=== PATIENT | female | born 1990 | race Caucasian/White ===

== ENCOUNTER 2017-12-02 14:10 | Inpatient (IN) | payer MEDICAID ==
[~2017-12-02] VITALS: Ht 170.2 cm; Wt 83.0 kg
[2017-12-02 14:30] VITALS: BP 123/71
[2017-12-02] MEDS ORDERED: OXYTOCIN 30 UNITS/LACT RINGERS 500 ML IV ONE (15:37)
[2017-12-02] MEDS ORDERED: RINGERS SOLUTION,LACTATED 1,000 ML IV PRN (15:37)
[2017-12-02] MEDS ORDERED: PREN1TAB80 PO (15:37)
[2017-12-02] MEDS ORDERED: CITRIC ACID/SODIUM CITRATE 30 ML SOLUTION UDCUP PO PRN (15:45)
[2017-12-02] MEDS ORDERED: METOCLOPRAMIDE HCL 5 MG/ML 2 ML VIAL IVP PRN (15:45)
[2017-12-02] MEDS ORDERED: AMPICILLIN SODIUM 2 GM/NS 100 ML IV ONE (15:45)
[2017-12-02] MEDS ORDERED: LIDOCAINE/PF 1% 30 ML VIAL INJ PRN (15:45)
[2017-12-02] MEDS ORDERED: DINOPROSTONE 10 MG VAGINAL SUPPOSITORY VG ONE (15:45)
[2017-12-02] MEDS: RINGERS SOLUTION,LACTATED 1,000 ML IV SCH (16:13)
[2017-12-02 16:23] LABS: BASOPHILS % (AUTO) 0.3 % (0.0-2.0); EOSINOPHILS % (AUTO) 1.3 % (1.0-6.0); HEMATOCRIT 29.5 % (36-46); HEMOGLOBIN 10.1 g/dL (12.0-16.0); LYMPHOCYTES # (AUTO) 1.5 K/uL (1.0-4.8); LYMPHOCYTES % (AUTO) 22.8 % (22.0-44.0); MEAN CORPUSCULAR HEMOGLOBIN 31.5 pg (26.0-34.0); MEAN CORPUSCULAR HGB CONC 34.3 G/dL (31.0-37.0); MEAN CORPUSCULAR VOLUME 92 fL (80-100); MONOCYTES # (AUTO) 0.6 K/uL (0.1-1.0); MONOCYTES % (AUTO) 8.6 % (2.0-9.0); NEUTROPHILS # (AUTO) 4.5 K/uL (1.8-7.7); PLATELET COUNT (AUTO)-OB 255 K/uL (150-450); RED BLOOD CELL COUNT(AUTO) 3.21 MIL/uL (4.00-5.20); RED CELL DISTRIBUTION WIDTH 14.3 % (11.5-14.5)
[2017-12-02] MEDS: FentaNYL CITRATE-PF 100 MCG/2 ML VIAL IVP PRN (18:57)
[2017-12-02] MEDS ORDERED: OXYGEN THERAPY IH SCH (20:00)
[2017-12-02] MEDS: AMPICILLIN SODIUM 1 GM/NS 50 ML IV SCH (20:25)
[2017-12-03] MEDS: AMPICILLIN SODIUM 1 GM/NS 50 ML IV SCH (00:11)
[2017-12-03] MEDS: FentaNYL CITRATE-PF 100 MCG/2 ML VIAL IVP PRN ×2 (00:25→00:27)
[2017-12-03] MEDS: RINGERS SOLUTION,LACTATED 1,000 ML IV SCH (01:12)
[2017-12-03] MEDS ORDERED: ROPIVACAINE HCL/PF 0.2% 100 ML ED ONE (02:39)
[2017-12-03] MEDS ORDERED: ROPIVACAINE HCL/PF 0.2% 100 ML ED PRN (03:13)
[2017-12-03] MEDS ORDERED: DiphenhydrAMINE HCL 50 MG/ML VIAL IVP PRN (03:15)
[2017-12-03] MEDS ORDERED: ONDANSETRON HCL 4 MG/2 ML VIAL IVP PRN (03:15)
[2017-12-03] MEDS ORDERED: FentaNYL CITRATE-PF 100 MCG/2 ML VIAL ONE (03:32)
[2017-12-03] MEDS ORDERED: OXYTOCIN 30 UNITS/LACT RINGERS 500 ML IV ONE (03:39)
[2017-12-03] MEDS ORDERED: -PHARMACY NOTE- MISC ONE (03:45)
[2017-12-03] MEDS ORDERED: LANOLIN 7 GM OINTMENT TP PRN (04:30)
[2017-12-03] MEDS ORDERED: ACETAMINOPHEN/CODEINE 300-30 MG TABLET PO PRN ×2 (04:30)
[2017-12-03] MEDS ORDERED: GLYCERIN/WITCH HAZEL LEAF 40 PADS JAR TP PRN (04:30)
[2017-12-03] MEDS ORDERED: BENZOCAINE 20%/MENTHOL 56 GM SPRAY CANISTER TP PRN (04:30)
[2017-12-03] MEDS: IBUPROFEN 800 MG TABLET PO SCH ×4 (06:00→22:19)
[2017-12-03] MEDS: MAGNESIUM HYDROXIDE SUSPENSION 30 ML UDCUP PO SCH ×2 (09:00→21:00)
[2017-12-04] MEDS: IBUPROFEN 800 MG TABLET PO SCH (06:00)
[2017-12-04] MEDS ORDERED: MEASLES/MUMPS/RUBELLA VACCINE, LIVE 0.5 ML/VIAL SQ ONE (08:00)
[2017-12-04] MEDS: MAGNESIUM HYDROXIDE SUSPENSION 30 ML UDCUP PO SCH (09:00)
== END 2017-12-04 10:45 | disposition home or self-care (01) | DRG 560 ==
LOC: OBSVTOIN 14:10 → 4S 14:10
PROVIDERS: ADMIT Obstetrics & Gynecology; ATTEND Obstetrics & Gynecology
PROC: 10E0XZZ Delivery of Products of Conception, External Approach (ICD-10-PCS; principal; 2017-12-03)
PROC: 3E0R3BZ Introduction of Anesthetic Agent into Spinal Canal, Percutaneous Approach (ICD-10-PCS; 2017-12-03)
PROC: 00HU33Z Insertion of Infusion Device into Spinal Canal, Percutaneous Approach (ICD-10-PCS; 2017-12-03)
DX: O41.03X0 Oligohydramnios, third trimester, not applicable or unspecified (principal); O99.820 Streptococcus B carrier state complicating pregnancy; Z28.21 Immunization not carried out because of patient refusal; Z37.0 Single live birth; Z3A.39 39 weeks gestation of pregnancy
CPT/HCPCS: 86850; 86870; 86880; 86900; 86901; 86905; 86906; 86971; 86999; J0290; J2590; J2795; J3010; J7120

== ENCOUNTER 2019-05-19 10:05 | Observation (INO) | payer MEDICAID ==
[~2019-05-19] VITALS: Ht 170.2 cm; Wt 75.7 kg
[~2019-05-19 10:05] MED LIST: PREN1TAB80 PO
== END 2019-05-19 11:25 | disposition home or self-care (01) ==
LOC: 4S 10:05
PROVIDERS: ADMIT Obstetrics & Gynecology; ATTEND Obstetrics & Gynecology
DX: Z34.93 Encounter for supervision of normal pregnancy, unspecified, third trimester (principal); Z3A.34 34 weeks gestation of pregnancy
CPT/HCPCS: 59025; 81001; G0378

== ENCOUNTER 2019-05-22 18:11 | Observation (INO) | payer MEDICAID ==
[2019-05-22 18:19] VITALS: BP 119/65
== END 2019-05-22 19:00 | disposition home or self-care (01) ==
LOC: 4S 18:11
PROVIDERS: ADMIT Obstetrics & Gynecology Obstetrics; ATTEND Obstetrics & Gynecology Obstetrics
DX: O36.1930 Maternal care for other isoimmunization, third trimester, not applicable or unspecified (principal); Z3A.34 34 weeks gestation of pregnancy
CPT/HCPCS: 59025; 81001; G0378

== ENCOUNTER 2019-05-23 18:16 | Observation (INO) | payer MEDICAID ==
[~2019-05-23] VITALS: Ht 170.2 cm; Wt 77.6 kg
[2019-05-23 19:27] VITALS: BP 112/63
[2019-05-23 21:05] LABS: GLUCOMETER DEV NAME(LOC) 4S.; GLUCOSE,POINT OF CARE 91 MG/DL (70-110)
== END 2019-05-23 19:55 | disposition home or self-care (01) ==
LOC: 4S 18:16
PROVIDERS: ADMIT Obstetrics & Gynecology Obstetrics; ATTEND Obstetrics & Gynecology Obstetrics
DX: O41.1030 Infection of amniotic sac and membranes, unspecified, third trimester, not applicable or unspecified (principal); Z3A.34 34 weeks gestation of pregnancy
CPT/HCPCS: 59025; 76811; 82962; G0378

== ENCOUNTER 2019-05-30 18:14 | Observation (INO) | payer MEDICAID ==
[~2019-05-30] VITALS: Ht 170.2 cm; Wt 76.7 kg
[2019-05-30 18:39] VITALS: BP 119/87
== END 2019-05-30 19:55 | disposition home or self-care (01) ==
LOC: 4S 18:14
PROVIDERS: ADMIT Obstetrics & Gynecology; ATTEND Obstetrics & Gynecology
DX: Z34.93 Encounter for supervision of normal pregnancy, unspecified, third trimester (principal); Z3A.35 35 weeks gestation of pregnancy
CPT/HCPCS: 59025; 76805; 81001; G0378

== ENCOUNTER 2019-06-02 11:54 | Observation (INO) | payer MEDICAID ==
[~2019-06-02] VITALS: Ht 170.2 cm; Wt 77.6 kg
[2019-06-02 13:36] VITALS: BP 109/66
[2019-06-02 14:43] LABS: APPEARANCE,URINE CLOUDY (CLEAR); BILIRUBIN,URINE NEGATIVE (NEGATIVE); GLUCOSE, URINE (UA) NEGATIVE (NEGATIVE); KETONES,URINE NEGATIVE (NEGATIVE); LEUKOCYTE ESTERASE ,URINE LARGE (NEGATIVE); NITRATE,URINE NEGATIVE (NEGATIVE); OCCULT BLOOD,URINE NEGATIVE (NEGATIVE); PH,URINE 7.5 (5.0-8.0); PROTEIN,URINE NEGATIVE (NEGATIVE)
[2019-06-02 14:51] LABS: BACTERIA,URINE Moderate /HPF (None Seen); RBC,URINE None Seen /HPF (0-2); SQUAMOUS EPITHELIAL CELL,UR Many /LPF (None Seen)
== END 2019-06-02 13:20 | disposition home or self-care (01) ==
LOC: 4S 11:54
PROVIDERS: ADMIT Obstetrics & Gynecology; ATTEND Obstetrics & Gynecology
DX: Z34.83 Encounter for supervision of other normal pregnancy, third trimester (principal); Z3A.36 36 weeks gestation of pregnancy
CPT/HCPCS: 59025; 81001; 87086; G0378

== ENCOUNTER 2019-06-06 14:15 | Observation (INO) | payer MEDICAID ==
[2019-06-06 15:15] VITALS: BP 118/70
== END 2019-06-06 16:30 | disposition home or self-care (01) ==
LOC: 4S 14:15
PROVIDERS: ADMIT Obstetrics & Gynecology Obstetrics; ATTEND Obstetrics & Gynecology Obstetrics
DX: Z34.83 Encounter for supervision of other normal pregnancy, third trimester (principal); Z3A.36 36 weeks gestation of pregnancy
CPT/HCPCS: 59025; 76805; G0378